=== PATIENT | female | born 1945 | race Caucasian/White ===

== ENCOUNTER → 2017-08-28 | Outpatient (CLI) | payer OTHER, BC ==
[~2017-08-28] VITALS: Ht 167.6 cm; Wt 88.5 kg
[~2017-08-28] MED LIST: APAP650 PO; ESTRACE0.5 MG PO; ETODOLAC500 MG PO; NABUMETONE 750750 M1 PO; PROGESTERONE100 MG PO; TRAMADOL 50 MG50 MG PO; TRAZODONE HCL50 MG PO
--- NOTE | ~2017-08-28 | HPC ---
[facility] [place] [address] PAIN MANAGEMENT CONSULTATION Name: SHELLEY WASHINGTON Room #: REG PHILOMENA Zimmerman.#: [id number] Admission: 08/28/17 Attend Phys: Roland Szymanski MD Discharge: Date of : 45 Report #: [id number] THIS REPORT FOR: //name// CC: Alberto Szymanski DATE OF SERVICE: 08/28/2017 CHIEF COMPLAINT: Low back pain with radiation into the back of both legs. The patient is a billy 71-year-old lady who is here today with lumbar radiculopathy sent to us by Dr. Upton for consideration of lumbar epidural injection. She describes pain as a stiff constriction and an intense sharp pain in her low back that radiates down the back of both legs. It is worse when she sits for a long time or rides in a car. It improves with exercise, heat and doing some exercises with lifting. She sometimes just tries to ignore the pain and has tried to go to the gym and this seems sometimes to help. Her pain intensity today is a 6/10, but it can be so bad that she is a 10/10 and must lay down. MEDICATIONS: Tramadol, estradiol, trazodone, progesterone, piroxicam. ALLERGIES: None. PAST MEDICAL HISTORY: History of hepatitis. She has osteoarthritis and has had bilateral knee replacements, the first in 2007 on the right and second in the left in 2014. She has had carpal tunnel surgery and joint replacement on her thumb in the right hand. She has a history of gastric problems with gastritis and ulcers. SOCIAL HISTORY: She denies use of tobacco or alcohol. She is . 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 REVIEW OF SYSTEMS: Completed by the patient and is fairly modest complaining only of lightheadedness and on occasion dizziness and nocturia. She has some chronic sinus problems. Most of her complaints otherwise related to the low back pain with radiation down the posterior aspect of both legs. PHYSICAL EXAMINATION AND PQRS REVIEW: Her blood pressure is 128/56, heart rate 62, respirations 16. Pain intensity 6. She is not a fall risk and has not fallen in the last 3 months. She is on no blood thinners. She takes no opioid medication and does not have hypertension. She is able to move independently from sitting to standing position, but has difficulty with standing straight. There is pain across her low back with flexion and extension, [id number] tilt and rotation. On straight leg raising, there is a radicular pain that follows [facility] [address] [place] [address] PAIN MANAGEMENT CONSULTATION Name: SHELLEY WASHINGTON Room #: REG PHILOMENA Coffey#: [id number] Admission: 08/28/17 Attend Phys: Roland Szymanski MD Discharge: Date of : 45 Report #: [id number] an L5-S1 distribution as far as the feet. She has decreased deep tendon reflexes at the knees and ankles. Sensation is intact to light touch. MRI scan is reviewed. She has evidence of moderate spinal stenosis at L4-L5 and L5-S1. Records from Dr. Bang at [facility] shows that he did perform what appears to be an epidural injection; however, it was performed with a 25-gauge spinal needle and there may have been some issues with placement of the needle needed to be replaced on 2 occasions. RECOMMENDATION: Trial of epidural steroid injection under fluoroscopic guidance today using our technique. Potential risks and benefits have been reviewed with the patient. I have chosen L4-L5 above the level of her stenosis to provide the injection. PROCEDURE: She was taken to fluoroscopic suite for treatment, placed prone, skin prepped with ChloraPrep. Skin anesthetized over the L3-L4 interspace. A 20-gauge Tuohy epidural needle advanced in the epidural space above the level of her stenosis using loss of resistance attempted on the first attempt. There was no blood or CSF aspirated. 1 mL of Omnipaque demonstrated an excellent epidurogram. It was followed by 3 mL of 1% lidocaine mixed with 80 mg of triamcinolone. She tolerated the procedure well and was observed for 45 minutes and discharged. Pain was reduced at discharge and we will see her back in 1 month. <ELECTRONICALLY SIGNED> By: Roland Szymanski MD 09/10/17 1640 1040 1433 Roland Szymanski MD /nt
[2017-08-28 13:59] VITALS: BP 128/56
== END | disposition home or self-care (01) ==
LOC: PAIN 07:17
DX: M54.16 Radiculopathy, lumbar region (principal); Z79.899 Other long term (current) drug therapy; K75.9 Inflammatory liver disease, unspecified; M17.0 Bilateral primary osteoarthritis of knee; Z98.890 Other specified postprocedural states; Z87.891 Personal history of nicotine dependence

== ENCOUNTER → 2017-09-29 | Outpatient (CLI) | payer OTHER, BC ==
[~2017-09-29] VITALS: Ht 167.6 cm; Wt 89.1 kg
--- NOTE | ~2017-09-29 | HPC ---
[facility] [place] [address] [place] [address] PAIN MANAGEMENT CONSULTATION Name: SHELLEY WASHINGTON Room #: REG PHILOMENA Zimmerman.#: [id number] Admission: 09/29/17 Attend Phys: Roland Szymanski MD Discharge: Date of : 45 Report #: [id number] THIS REPORT FOR: //name// CC: Alberto Szymanski Followup visit for low back pain with radiculopathy. The patient returns to clinic today. She has done exceptionally well with a single epidural injection at L4-L5. She has spinal stenosis. Her pain today is very well managed following the epidural now 1 month. Her pain is 2. She has not fallen. She is moving better. She is able to resume some of lost household activities. She deals with osteoarthritis fairly well and does not need any additional treatment from our clinic. We reviewed her medications which include piroxicam and side effects from the medication were reviewed. She has reduced her use of tramadol. She has not required an opioid agreement. As she is on no blood thinners, no hypertension. She is able to walk without risk of falling. IMPRESSION: Low back pain with radiculopathy, well managed with a single epidural injection. I will be happy to repeat this in the future if necessary. She has no need for further injections at this time. <ELECTRONICALLY SIGNED> By: Roland Szymanski MD 10/20/17 1408 1206 1220 Roland Szymanski MD /chiqui
[2017-09-29 14:14] VITALS: BP 123/65
== END ==
LOC: PAIN 09-25 07:06 → RAD 07:24 → PAIN 07:24
DX: Z12.31 Encounter for screening mammogram for malignant neoplasm of breast (principal); M54.16 Radiculopathy, lumbar region; M48.061 Spinal stenosis, lumbar region without neurogenic claudication

== ENCOUNTER → 2018-01-01 | Outpatient (CLI) | payer OTHER, BC ==
[~2018-01-01] VITALS: Ht 167.6 cm; Wt 80.0 kg
--- NOTE | ~2018-01-01 | HPC ---
[facility] [place] [address] [place] [address] PAIN MANAGEMENT CONSULTATION Name: SHELLEY WASHINGTON Room #: REG PHILOMENA Elsie.#: [id number] Admission: 01/01/18 Attend Phys: Roland Szymanski MD Discharge: Date of : 45 Report #: [id number] THIS REPORT FOR: //name// CC: Alberto Szymanski DATE OF SERVICE: 01/01/2018 DATE OF REGISTRATION: 01/01/2018 Followup visit for recurrent lumbar radiculopathy. The last time I saw the patient was on 09/29/2017. At that time, she had received substantial pain relief from a single epidural injection performed in August. I elected not to repeat an injection at that time telling her that we would see how long the results of the injection could carry her before she felt that another injection would be helpful. It has now been over 4 months. Pain is once again in the low back related to her spinal stenosis and it follows a similar distribution into the legs. She scores it today as a 4/10, dull, aching, worse with all activities. She has been using heat to get some relief in addition to her request for epidural injection. There have been no other interval changes in her health history. She denies use of tobacco or alcohol. She is not a fall risk. She does not take opioids. Most of her pain from arthritis is in the spine. She has spondylitic changes as well and a slight scoliosis. PHYSICAL EXAMINATION: She is a pleasant female. She has lost weight! on the [employer] diet. Her BMI is now down below 30 at 28.5, previously at 31.5. She is alert and oriented without signs of depression, anxiety or overmedication. Examination of the spine reveals localized tenderness across the lumbosacral segment. Straight leg raising is mildly positive bilaterally and it follows mostly in L5 distribution into the lateral calf. Sensation and strength are intact with no local weakness. Deep tendon reflexes diminished bilaterally in the lower extremities. IMPRESSION: Low back pain with radiculopathy secondary to L4-L5 lumbar radiculopathy. RECOMMENDATIONS: Epidural steroid injection to L4-L5 under fluoroscopic guidance. She was taken to fluoroscopic suite, placed prone, skin prepped with ChloraPrep. Skin anesthetized over the L4-L5 interspace. A 20-gauge Tuohy epidural needle advanced in the epidural space with loss of resistance technique[place] [address] PAIN MANAGEMENT CONSULTATION Name: WASHINGTONSHELLEYNAILA BARROW Room #: REG CL Alexx#: [id number] Admission: 01/01/18 Attend Phys: Rolnad Szymanski MD Discharge: Date of : 45 Report #: [id number] blood or CSF aspirated. 1 mL of Omnipaque injected. Good spread of dye observed in the epidural space, followed by 3 mL of 0.5% lidocaine mixed with 80 mg triamcinolone. She tolerated the procedure well and was observed for 45 minutes and discharged. Followup as needed. By: 1303 2307 Roland Szymanski MD /chiqui
[2018-01-01 14:21] VITALS: BP 126/66
== END | disposition home or self-care (01) ==
LOC: PAIN 07:07
DX: M54.16 Radiculopathy, lumbar region (principal); G89.29 Other chronic pain; Z87.891 Personal history of nicotine dependence; Z79.899 Other long term (current) drug therapy; Z98.890 Other specified postprocedural states

== ENCOUNTER → 2018-04-09 | Outpatient (CLI) | payer OTHER, BC ==
[~2018-04-09] VITALS: Ht 167.6 cm; Wt 74.9 kg
--- NOTE | ~2018-04-09 | HPC ---
[facility] [address] [place] [address] PAIN MANAGEMENT CONSULTATION Name: SHELLEY WASHINGTON Room #: REG PHILOMENA Zimmerman.#: [id number] Admission: 04/09/18 Attend Phys: Roland Szymanski MD Discharge: Date of : 45 Report #: [id number] THIS REPORT FOR: //name// CC: Alberto Szymanski DATE OF SERVICE: 04/09/2018 Followup visit for chronic pain. The patient returns to pain clinic today complaining once again of lumbar radiculopathy. She has responded nicely to epidural injections. She has a listhesis and scoliosis with a left lateral tilt involving L2-L3, L3-L4, L4-L5. She has responded previously to epidural injections. She is here today for repeat injection under fluoroscopic guidance. She reports substantial duration of response from her last injection exceeding 2 months. She asked about surgery and we had 5-10 minutes discussion about risks and benefits. A friend of hers has recently undergone instrumentation fusion and is doing well. MEDICATIONS: Reviewed and reconciled. She is not a fall risk. She is not on blood thinners. She does not take medication for blood pressure. Her weight is controlled with a BMI of 26.7. She denies osteoarthritis pain at this time. PHYSICAL EXAMINATION: Blood pressure 135/60, heart rate is 56, respirations 16. She has some pain with forward flexion and extension. Tenderness across the low back. Straight leg raising reproduces pain bilaterally into the lower extremities. Pain follows an L4-L5 distribution. IMPRESSION: Chronic low back pain with evidence of spinal stenosis. She is a good responder to epidural steroid therapy. RECOMMENDATIONS: Repeat epidural steroid injection under fluoroscopic guidance. She was taken to fluoroscopic suite, placed prone, skin prepped with ChloraPrep. Skin anesthetized over the L4-L5 interspace. A 20-gauge Tuohy epidural needle advanced first attempt in the epidural space with loss of resistance technique. There was no blood or CSF aspirated. 1 mL of Omnipaque injected with good spread of dye observed in the epidural space. This was followed by 3 mL of 0.5% lidocaine mixed with 80 mg triamcinolone. She tolerated the procedure well and was observed for 45 minutes [address] [address] PAIN MANAGEMENT CONSULTATION Name: PADMINISHELLEY PUSHPA Room #: REG [facility]#: [id number] Admission: 04/09/18 Attend Phys: Roland Szymanski MD Discharge: Date of : 45 Report #: [id number] Follow up as needed. <ELECTRONICALLY SIGNED> By: Roland Szymanski MD 04/09/18 1615 1226 1343 Roland Szymanski MD /nt
[2018-04-09 09:18] VITALS: BP 135/60
== END | disposition home or self-care (01) ==
LOC: PAIN 08:53
DX: M54.16 Radiculopathy, lumbar region (principal); G89.29 Other chronic pain; M48.061 Spinal stenosis, lumbar region without neurogenic claudication; Z87.891 Personal history of nicotine dependence; Z79.899 Other long term (current) drug therapy; Z98.890 Other specified postprocedural states

== ENCOUNTER → 2018-08-20 | Outpatient (CLI) | payer OTHER, BC ==
[~2018-08-20] VITALS: Ht 167.6 cm; Wt 76.1 kg
[~2018-08-20] MED LIST changes: +FELDENE20 MG PO
--- NOTE | ~2018-08-20 | HPC ---
[facility] [address] [address] PAIN MANAGEMENT CONSULTATION Name: SHELLEY WASHINGTON Room #: REG PHILOMENA Elsie.#: [id number] Admission: 08/20/18 Attend Phys: Roland Szymanski MD Discharge: Date of : 45 Report #: [id number] THIS REPORT FOR: //name// CC: Alberto Szymanski DATE OF SERVICE: 08/20/2018 Followup visit for lumbar radiculopathy bilateral secondary to spinal stenosis. The patient is here today for an epidural injection. She has responded nicely to these injections with significant improvement lasting oftentimes greater than 3-4 months. She is here today for repeat injection. In addition to her back pain and spinal stenosis, radiculopathy, she has pain in a replaced left knee. She has seen Dr. Salas Guevara and he had discussed options for treatment with her. He had some concern about infection, but this has apparently been ruled out. We called his office to confirm. PQRS review demonstrates: 1. A strong history of osteoarthritis. 2. Pain intensity on a daily basis in her back, knees, is a 5/10. When she is on her feet, her knee hurts up to a 9/10. 3. She is not a fall risk and has not fallen recently. 4. She is not on blood thinners. 5. She has no history of hypertension. 6. She takes no opioid medications. 7. She has completed an opioid risk tool and is at low risk. If she were to start, that is a 2/3. 8. She denies use of tobacco or alcohol. HOME MEDICATIONS: Reviewed and reconciled. PHYSICAL EXAMINATION: A pleasant female. Her blood pressure 137/63, heart rate 60, respirations 14, BMI 27.1. She can move easily from a aazdzjt-fj-slpheatu position, but has some difficulty straightening. She has pain with all range of motion of the lumbar spine and tenderness across the low back. Straight leg raising reproduces pain bilaterally in the lower extremities following an L5 distribution, most of it along the lateral aspect. IMPRESSION: 1. Chronic low back pain with evidence of spinal stenosis. 2. Left total knee replacement pain. This knee issue is much more common in females than males. [place] [address] PAIN MANAGEMENT CONSULTATION Name: SHELLEY WASHINGTON Room #: REG PHILOMENA Coffey#: [id number] Admission: 08/20/18 Attend Phys: Roland Szymanski MD Discharge: Date of : 45 Report #: [id number] to manage this problem for her and I hope that they can resolve this in some fashion. For the moment, we will continue to provide stenosis with epidural injections. PROCEDURE: Lumbar epidural injection under fluoroscopic guidance. PROCEDURE: She was taken to fluoroscopic suite, placed prone. Skin prepped with ChloraPrep. Skin anesthetized over the L4-L5 interspace. A 20-gauge Tuohy epidural needle advanced first attempt into the epidural space with loss of resistance technique. There was no blood or CSF aspirated. 1 mL of Omnipaque was injected. Good spread of dye observed in the epidural space followed by 3 mL of 0.5% lidocaine mixed with 80 mg of triamcinolone. She tolerated the procedure well, was observed for 45 minutes and discharged. Followup visit planned as needed. By: 1630 0115 Roland Szymanski MD /nt
[2018-08-20 14:12] VITALS: BP 137/63
--- NOTE | 2018-08-20 14:24 | NUR ---
Pain Clinic Assessment: 1. History of Osteoarthritis: YES History of Rheumatoid Arthritis: Not Applicable 2. Height: 5 ft. 6 in. 167.6 cm. Weight: 167.8 lb. oz. 76.114 kg. Patient's BMI: 27.1 3. Vital Signs: BP: 137/63 Pulse: 60 Resp: 14 Temp: 02 Sat: 97 ECG Mon: 4. Pain Intensity: 5 5. Fall Risk: Dizziness: Y Needs help standing or walking: N Fallen in the last 3 months: N Fall risk comments: 6. Patient on Blood Thinner: None 7. History of Hypertension: N 8. Opioid Therapy greater than 6 weeks: N Opiate Contract Signed: 9. Risk Assessment Tool Provided: LOW RISK /3 10. Functional Assessment Tool: 11. Recreational Drug Use: Never Drug Type: Tobacco Use: Former Smoker Tobacco Type: Amount or Packs/day: How Many Years: Alcohol Use: No Frequency: Quant:
== END | disposition home or self-care (01) ==
LOC: PAIN 08-03 07:16
DX: M48.061 Spinal stenosis, lumbar region without neurogenic claudication (principal); M54.16 Radiculopathy, lumbar region; G89.29 Other chronic pain; Z96.652 Presence of left artificial knee joint; M19.90 Unspecified osteoarthritis, unspecified site; Z98.890 Other specified postprocedural states; Z87.891 Personal history of nicotine dependence; Z79.899 Other long term (current) drug therapy

== ENCOUNTER → 2018-09-09 | Outpatient (CLI) | payer OTHER, BC | LOC: NUC 08-19 11:06 | DX: M25.561 Pain in right knee (principal); M25.562 Pain in left knee; Z96.653 Presence of artificial knee joint, bilateral ==